=== PATIENT | female | born 1975 | race Caucasian/White ===

== ENCOUNTER 2018-01-29 15:52 | Inpatient (IN) ==
[2018-01-30] MEDS ORDERED: Acetaminophen 325 MG Tablet PO PRN (02:30)
[2018-01-30] MEDS ORDERED: Morphine Inj 4 MG/ML Vial IV.PUSH PRN (02:32)
[2018-01-30] MEDS: Sod Chloride 0.9% Inj 1,000 ML IV.CONT SCH ×3 (03:01→23:47)
--- NOTE | 2018-01-30 12:13 | P.HPIM ---
History of Present Illness Service: [facility] Primary Care Physician: No Primary Care Physician Chief Complaint: Dysuria and Left groin pain History of Present Illness: This is a 42-year-old female with past medical history of opiate addiction on methadone who presented to the ER with severe suprapubic and left flank pain that started the morning of 01/29. Patient also stated that she began to have dysuria at that time, denied fever, chills, N/V, and hematuria. Patient reports that she has had multiple kidney stones since age of 17 none of which required surgery, last one a few months ago. She also adds that she had a UTI and URI 1 wk ago s/p Augmentin. Patient reports that she has been on methadone for the past 20 years, no dose changes. Patient reports that her last dose was on 01/28/2018. Patient denies other illicit drug use. - Diagnosis (1) UTI (urinary tract infection) (2) Opioid dependence (3) Calculus, ureteral Inpatient Certification: I certify that the inpatient services were ordered in accordance with Medicare regulations governing the order. This includes certification that hospital inpatient services are reasonable and necessary and in the case of services not specified as inpatient-only under 42 CFR 419.22(n), that they are appropriately provided as inpatient services in accordance to with the 2-midnight benchmark under 43 CFR 412.3(e) Estimated Total Length of Stay (Days): 2 Plans for Post Hospital Care: Home Review of Systems All other systems reviewed negative except as stated in HPI [facility] - History History Provided By: Patient - Medical History Medical History: Medical History (Last Updated 01/30/18 @ 14:21 by Aster Helms MD) Drug abuse, IV (Acute) Hx of ovarian cyst Kidney calculi - Surgical History Surgical History: Surgical History (Last Updated 01/30/18 @ 14:21 by Aster Helms MD) Hx of hysterectomy (Acute) - Social History I have reviewed the patient's Social History: Yes - Tobacco History Second Hand Smoke Exposure: Yes Tobacco Use In Past 30 Days: Yes Smoking Status: Current every day smoker Tobacco Type: Cigarettes - Alcohol History How Often Do You Have a Drink Containing Alcohol: Never - Substance Use History Substance History: Past History (Currently on methadone at the [facility] methadone clinic, dose verified by RN today, on 170 mg daily) - Immunization History Hx Influenza Vaccine This Season: No Medications and Allergies Active Medications: Active Medications Acetaminophen (Tylenol) 650 mg PO Q4H PRN PRN Reason: Temp > 100.4 Sodium Chloride (Ns Inj) 1,000 mls @ 150 mls/hr IV.CONT .Q6H40M DARBY Last Admin: 01/30/18 03:01 Dose: 100 mls/hr Ceftriaxone Sodium 1,000 mg/ (Sodium Chloride) 100 mls @ 200 mls/hr IV.SIG Q24H DARBY Morphine Sulfate (Morphine Inj) 2 mg IV.PUSH Q3H PRN PRN Reason: ABDOMINAL PAIN Last Admin: 01/30/18 03:06 Dose: 2 mg Ondansetron HCl (Zofran Inj) 4 mg IV.PUSH Q6H PRN PRN Reason: NAUSEA OR VOMITING Allergies Allergy/AdvReac Type Severity Reaction Status Date / Time No Known Allergies Allergy Verified 01/30/18 02:02 Home Medications Medication Instructions Recorded Confirmed Type methadone 170 mg PO DAILY 01/30/18 01/30/18 History Exam Vital signs: Vital Signs 01/30/18 02:06 01/30/18 03:46 01/30/18 04:00 Temperature 98.0 F 97.6 F Pulse Rate 60 64 Respiratory Rate 18 18 16 Blood Pressure 120/70 128/70 Pulse Oximetry 98 96 01/30/18 08:00 Temperature 97.3 F L Pulse Rate 68 Respiratory Rate 20 Blood Pressure 117/60 Pulse Oximetry 97 Intake & Output 01/29/18 01/30/18 01/30/18 18:59 06:59 18:59 Weight 71.817 kg Other: Date of Last Bowel Movement 01/28/18 Weight On Admission 71.817 kg Narrative: GENERAL: Well-nourished female, in mild distress due to pain, lying in bed SKIN: Warm and dry. HEAD: Normocephalic. EYES: No scleral icterus. No injection or drainage. NECK: Supple, trachea midline. No JVD or lymphadenopathy. CARDIOVASCULAR: Regular rate and rhythm without murmurs, gallops, or rubs. RESPIRATORY: Breath sounds equal bilaterally. No accessory muscle use. GASTROINTESTINAL: Abdomen soft, non-tender, nondistended. Negative rebound, left groin with mild tenderness to palpation. Negative Floyd's punch right and left. MUSCULOSKELETAL: No cyanosis, or edema. BACK: Nontender without obvious deformity. No CVA tenderness. NEURO: AAO x3, no focal deficit Caprini VTE Risk Assessment Caprini VTE Risk Assessment: No/Low Risk (score <= 1) Caprini Risk Assessment Model: Point Value = 1 Point Value = 2 Point Value = 3 Point Value = 5 Age 41-60 Minor surgery BMI > 25 kg/m2 Swollen legs Varicose veins or History of unexplained or recurrent spontaneous Oral contraceptives or hormone replacement Sepsis (< 1 month) Serious lung disease, including pneumonia (< 1 month) Abnormal pulmonary function Acute myocardial infarction Congestive heart failure (< 1 month) History of inflammatory bowel disease Medical patient at bed rest Age 61-74 Arthroscopic surgery Major open surgery (> 45 min) Laparoscopic surgery (> 45 min) Malignancy Confined to bed (> 72 hours) Immobilizing plaster cast Central venous access Age >= 75 History of VTE Family history of VTE Factor V Leiden Prothrombin [id number] Lupus anticoagulant Anticardiolipin antibodies Elevated serum homocysteine Heparin-induced thrombocytopenia Other congenital or acquired thrombophilia Stroke (< 1 month) Elective arthroplasty Hip, pelvis, or leg fracture Acute spinal cord injury (< 1 month) Prophylaxis Regimen: Total Risk Factor Score Risk Level Prophylaxis Regimen 0-1 Low Early ambulation 2 Moderate Order ONE of the following: *Sequential Compression Device (SCD) *Heparin 5000 units SQ BID 3-4 Higher Order ONE of the following medications: *Heparin 5000 units SQ TID *Enoxaparin/Lovenox 40 mg SQ daily (WT < 150 kg, CrCl > 30 mL/min) *Enoxaparin/Lovenox 30 mg SQ daily (WT < 150 kg, CrCl > 10-29 mL/min) *Enoxaparin/Lovenox 30 mg SQ BID (WT < 150 kg, CrCl > 30 mL/min) AND/OR *Sequential Compression Device (SCD) 5 or more Highest Order ONE of the following medications: *Heparin 5000 units SQ TID (Preferred with Epidurals) *Enoxaparin/Lovenox 40 mg SQ daily (WT < 150 kg, CrCl > 30 mL/min) *Enoxaparin/Lovenox 30 mg SQ daily (WT < 150 kg, CrCl > 10-29 mL/min) *Enoxaparin/Lovenox 30 mg SQ BID (WT < 150 kg, CrCl > 30 mL/min) AND *Sequential Compression Device (SCD) Assessment and Plan - Assessment (1) UTI (urinary tract infection) Code(s): N39.0 - Urinary tract infection, site not specified Status: Acute (2) Opioid dependence Code(s): F11.20 - Opioid dependence, uncomplicated Status: Chronic (3) Calculus, ureteral Code(s): N20.1 - Calculus of ureter Status: Acute - Plan This is a 42-year female with PMHX of Opioid Addiction on methadone admitted from the [facility] ER for UTI with CT finding of a 7 x 3 mm distal left ureteral calculus with mild hydronephrosis, urology was consulted to assist with management, HD #1 1. Left Ureteral Calculus with Mild Hydronephrosis and UTI Cont. Ceftriaxone 1g Q 24 hours, started on 01/30 Urine Cx 01/29: Gram neg rods, pending sensitivities in select visit under 01/29 ) NPO at midnight tonight for possible surgery in AM (given reg diet prior to my evaluation) IVF at 150ml/hr Follow-up Urology reccs Blood cultures obtained today Cont. home Methadone 170mg QD for pain mgmt and Zofran PRN Cont. Flomax daily CT ABD PELVIX 01/29: FINDINGS: Lower Lungs: The visualized lower lungs are clear. Liver: The liver has a homogeneous density without space-occupying lesion. There is no dilation of the biliary tree. Spleen: Homogeneous density without enlargement. Pancreas: Unremarkable without mass or calcification. Kidneys: Normal in size and shape. There are 2 tiny nonobstructing right renal calculi. There is mild hydronephrosis on the right. There is a distal left ureteral calculus measuring approximately 7 x 3 mm in greatest diameter. This is located approximately 4 cm above the ureterovesicular junction. There is a cyst in the right kidney. There is slight prominence the proximal left ureter with mild surrounding inflammatory change.. Adrenal Glands: Unremarkable. Aorta: The aorta and proximal iliac vessels are grossly unremarkable without aneurysmal dilation. Bowel/Mesentery: The bowel loops are grossly unremarkable. The cecum and sigmoid colon have a normal configuration. Abdominal Wall: Intact. Retroperitoneum: No evidence of adenopathy in the retrocrural, para-aortic, or deep pelvic regions. Bladder: Contours are smooth. Reproductive Organs: No abnormal masses or calcifications seen. Inguinal: The inguinal region is unremarkable without evidence of adenopathy. Bony Structures: Unremarkable. CONCLUSION: Distal left ureteral calculus with mild hydronephrosis. Small nonobstructing right renal calculi. 2. Opiate Addiction Patient attends the [facility] Methadone dose was verified with the clinic today via telephone by RN Kylie. patient's dose of Methadone 170mg QD, last dose was given on 01/28 at the clinic Will obtain UDS, although our lab does not specifically test for methadone 3. DVT PPX: SCD's 4. Dispo: await Uro reccs, NPO at midnight in case of surgical intervention tomorrow, F/U AM labs Code Status: full Discussed Condition With: patient, RN H&P: Quality - VTE Deep Vein Thrombosis/Pulmonary Embolism Present on Admission: No
[2018-01-30] MEDS: Methadone 10 MG Tablet PO SCH (13:15)
[2018-01-30 13:37] LABS: Amphetamine Screen,Urine Neg (Neg); Barbiturate Screen,Urine Neg (Neg); Cannabinoid Screen,Urine Neg (Neg); Cocaine Screen,Urine Neg (Neg)
[2018-01-30 13:41] LABS: Opiate Screen,Urine Neg (Neg)
--- NOTE | 2018-01-30 16:05 | MB ---
cc: Deven Horann Kaiser DO DATE: 01/30/2018 HISTORY OF PRESENT ILLNESS: This is a 42-year-old female who presented to the emergency room with left-sided flank pain. She had a CT scan, which demonstrated a 7 mm stone in the lower left ureter causing moderate hydronephrosis. She has had kidney stones in the past, but she has made able to pass those all before. PAST MEDICAL HISTORY: Includes IV drug abuse, fibroids, renal calculi. PAST SURGICAL HISTORY: Appendectomy, total abdominal hysterectomy. SOCIAL HISTORY: She does smoke. She denies drinking, but she does have a history of opioid abuse and is currently on methadone. ALLERGIES: NO KNOWN DRUG ALLERGIES. MEDICATIONS: Please refer to the chart. REVIEW OF SYSTEMS: Left-sided flank pain, dysuria. Denies nausea, vomiting, fever or chills, gait disturbance, bleeding disorder, skin lesions, chest pain, shortness of breath. Denies constipation. Denies seizures. Remaining review of systems were reviewed and were negative. PHYSICAL EXAMINATION: VITAL SIGNS: Today, temperature 97.6, heart rate 79, respiratory rate 18, 115/70 is her blood pressure. GENERAL: Reveals a well-developed, well-nourished, 42-year-old female in no acute distress. HEENT: Normocephalic, atraumatic. Pupils equal, round, regular and reactive to light. Extraocular movements intact. NECK: Supple. HEART: Regular rate and rhythm. LUNGS: Clear. ABDOMEN: Soft, nontender, nondistended. There is mild left CVA tenderness present. EXTREMITIES: Show no cyanosis, clubbing, or edema. GENITOURINARY: Normal female external genitalia. NEUROLOGIC: Cranial nerves 2-12 are intact. LABORATORY DATA: White count 10.4, hemoglobin 14.5, hematocrit 42.0, platelet count of 335. Sodium 143, potassium 4.3, chloride 108, CO2 29.6, BUN 12, creatinine 0.63, glucose 94. Urinalysis: Moderate leukocyte esterase, nitrites positive, urine culture is pending as well as blood culture. ASSESSMENT: A 42-year-old female with a 7 mm lower left ureteral stone causing obstruction. PLAN: Will be for cystoscopy, possible ureteroscopy, laser lithotripsy, stone extraction in the a.m. with stent insertion. Risks and benefits discussed. The patient willing to proceed. DO COLT Cerda/pamela , 03:18 PM , 03:25 PM
[2018-01-31] MEDS ORDERED: Chlorhexidine Gluconate 2% 1 Pack (2 Cloths) TOPICAL ONE (01:10)
[2018-01-31] MEDS ORDERED: Metoprolol Tartrate 25 MG Tablet PO ONE (01:10)
[2018-01-31] MEDS ORDERED: Sodium Chlor 0.9% Inj 500 ML IV.SIG SCH (02:00)
[2018-01-31 06:26] LABS: Baso % (Auto) 0.6 % (0.0-2.0); Eos # (Auto) 0.3 th/mm3 (0.0-0.4); Eos % (Auto) 3.8 % (0.0-4.0); Hematocrit 35.2 % (35.0-46.0); Hemoglobin 12.2 gm/dL (11.6-15.3); Lymph # (Auto) 2.1 th/mm3 (1.0-4.8); Lymph % (Auto) 29.5 % (9.0-44.0); Mean Corpuscular HGB Conc 34.6 % (32.0-36.0); Mean Corpuscular Hemoglobin 31.4 pg (27.0-34.0); Mean Corpuscular Volume 90.8 fL (80.0-100.0); Mean Platelet Volume 7.1 fL (7.0-11.0); Mono # (Auto) 0.4 th/mm3 (0.0-0.9); Mono % (Auto) 5.4 % (0.0-8.0); Neut # (Auto) 4.2 th/mm3 (1.8-7.7); Neut % (Auto) 60.7 % (16.0-70.0); Platelet Count 228 th/mm3 (150-450); Red Blood Count 3.88 mil/mm3 (4.00-5.30); Red Cell Distribution Width 13.1 % (11.6-17.2)
[2018-01-31 08:41] LABS: Anion Gap 5 meq/L (5-15); Blood Urea Nitrogen 9 mg/dL (7-18); Calcium 7.6 mg/dL (8.5-10.1); Carbon Dioxide 25.7 meq/L (21.0-32.0); Chloride 111 meq/L (98-107); Glomerular Filtration Rate Greater Than 89 mL/min (>89); Glucose,Random 82 mg/dL (74-106); Potassium 3.9 meq/L (3.5-5.1); Sodium 142 meq/L (136-145)
[2018-01-31] MEDS ORDERED: HYDROmorphone PF Inj 2 MG/ML Vial ONE (08:47)
[2018-01-31] MEDS ORDERED: Lidocaine PF 1% Inj 5 ML Syringe OTHER ONE (08:59)
[2018-01-31] MEDS ORDERED: Belladonna Alkaloid/Opium 60 MG Supp RECTAL ONE (09:03)
--- NOTE | 2018-01-31 09:49 | P.OP ---
- Preoperative Diagnosis (1) Left ureteral calculus (2) Hydronephrosis due to obstruction of ureter - Postoperative Diagnosis (1) Hydronephrosis due to obstruction of ureter (2) Left ureteral calculus Date of procedure: 01/31/18 Procedure: Cystoscopy, left ureteroscopy, stone extraction, left retrograde pyelogram. Anesthesia: GETA Surgeon: Navdeep Horan DO Estimated blood loss (mL): 0 Operation and Findings: 42-year-old female presented with a 7 mm decision made to bring the patient to the operating room to undergo cystoscopy with left ureteroscopy possible laser lithotripsy and stone extraction with possible stent insertion. Risk and benefits were discussed preoperative patient was willing to proceed. Patient was brought to the operating room and identified by myself as Kalpana Sexton. She was placed in the dorsolithotomy position, prepped and draped in sterile fashion, received preprocedure antibiotics and general endotracheal tube anesthesia was administered. 22 Italian cystoscope was inserted the bladder yates cystoscopy did not reveal abnormalities. The long rigid Cordero ureteroscope was then passed into the bladder into the left ureter and up to the area of the stone. Using the nitinol basket the stone was grasped and was removed without difficulty. A retrograde pyelogram was performed with contrast injected into the ureteroscope and up into the kidney through the ureter. No more filling defects were identified. The stone was then sent for analysis. She was awoken and transferred to recovery room in stable condition. She tolerated the procedure well.
[2018-01-31] MEDS ORDERED: *Meperidine Inj 25 MG/ML Vial PERIprocedural Use ONLY ONE (10:08)
[2018-01-31] MEDS ORDERED: fentaNYL Citrate Inj 100 MCG/2 ML Ampul ONE (10:11)
[2018-01-31] MEDS ORDERED: *morphine SULFATE 4 MG/ML PERIprocedure ONLY ONE ×2 (10:16→10:25)
[2018-01-31] MEDS ORDERED: Morphine Sulfate Inj 2 MG/ML Vial IV.PUSH PRN (10:32)
[2018-01-31 13:22] VITALS: RESP 16
--- NOTE | 2018-01-31 14:53 | P.PNIM ---
Subjective Interval history: Patient reports no further pain since her surgery. Has urinated after surgery without any difficulty. Would like to go home. Physical Exam Vital signs: Vital Signs 01/30/18 16:00 01/30/18 19:42 01/31/18 00:00 Temperature 97.9 F 98.4 F 98.4 F Pulse Rate 66 75 68 Respiratory Rate 21 17 18 Blood Pressure 137/64 102/60 109/64 Pulse Oximetry 93 L 96 96 01/31/18 04:00 01/31/18 08:00 01/31/18 10:00 Temperature 98.6 F 98.3 F 98.2 F Pulse Rate 66 63 106 H Respiratory Rate 17 16 20 Blood Pressure 103/62 125/63 137/75 Pulse Oximetry 97 98 97 01/31/18 10:30 01/31/18 12:00 Temperature 98.0 F 98.4 F Pulse Rate 81 80 Respiratory Rate 20 16 Blood Pressure 126/64 133/74 Pulse Oximetry 97 96 Intake & Output 01/30/18 01/31/18 01/31/18 18:59 06:59 18:59 Intake Total 1820 / 1820 1000 / 1000 500 / 500 Output Total 5 / 5 Balance 1820 / 1820 1000 / 1000 495 / 495 Weight 70 kg Intake: IV 1100 / 1100 1000 / 1000 NS Inj 1,000 ML @ 150 mls/hr IV 1000 / 1000 1000 / 1000 .CONT .Q6H40M [facility] Rx#:[id number] Rocephin Inj 1,000 MG In NS Inj 100 / 100 100 ML @ 200 mls/hr IV.SIG Q24H [facility] Rx#:[id number] Oral 720 / 720 Anesthesia Amount 500 / 500 Output: Estimated Blood Loss 5 / 5 Other: # Voids 3 Date of Last Bowel Movement 01/28/18 # Bowel Movements 0 Narrative: GENERAL: This is a well-nourished, well-developed patient, in no apparent distress. CARDIOVASCULAR: Regular rate and rhythm without murmurs, gallops, or rubs. RESPIRATORY: Clear to auscultation. Breath sounds equal bilaterally. No wheezes , rales, or rhonchi. GASTROINTESTINAL: Abdomen soft, non-tender, nondistended. Normal active bowel sounds MUSCULOSKELETAL: Extremities without clubbing, cyanosis, or edema. NEURO: Alert & Oriented x4 to person, place, time, situation. Moves all ext x4 Results - Labs CBC & Chem 7: 01/31/18 05:21 01/31/18 07:37 Laboratory Results - last 24 hr 01/31/18 01/31/18 05:21 07:37 WBC 7.0 RBC 3.88 L Hgb 12.2 D Hct 35.2 MCV 90.8 MCH 31.4 MCHC 34.6 RDW 13.1 Plt Count 228 D MPV 7.1 Neut % (Auto) 60.7 Lymph % (Auto) 29.5 [place] % (Auto) 5.4 Eos % (Auto) 3.8 Baso % (Auto) 0.6 Neut # (Auto) 4.2 Lymph # (Auto) 2.1 [place] # (Auto) 0.4 Eos # (Auto) 0.3 Baso # (Auto) 0.0 WBC Differential . Differential Comment Auto diff final Sodium 142 Potassium 3.9 Chloride 111 H Carbon Dioxide 25.7 Anion Gap 5 BUN 9 Creatinine 0.61 Estimated GFR Greater than 89 Random Glucose 82 Calcium 7.6 L C-Reactive Protein Less than 0.29 Microbiology 01/30/18 13:05 Random Urine Urine Culture - Final 10-50,000 cfu/mL mixed gram positive griselda (probable contaminants) 01/30/18 13:59 Blood - Peripheral Aerobic Blood Culture - Preliminary No growth in 1 day 01/30/18 13:59 Blood - Peripheral Anaerobic Blood Culture - Preliminary No growth in 1 day 01/30/18 13:59 Blood - Peripheral Aerobic Blood Culture - Preliminary No growth in 1 day 01/30/18 13:59 Blood - Peripheral Anaerobic Blood Culture - Preliminary No growth in 1 day Assessment and Plan - Assessment (1) UTI (urinary tract infection) Code(s): N39.0 - Urinary tract infection, site not specified Status: Acute (2) Opioid dependence Code(s): F11.20 - Opioid dependence, uncomplicated Status: Chronic (3) Calculus, ureteral Code(s): N20.1 - Calculus of ureter Status: Inactive - Plan This is a 42-year female with PMHX of Opioid Addiction on methadone admitted from the [facility] ER for UTI with CT finding of a 7 x 3 mm distal left ureteral calculus with mild hydronephrosis, urology was consulted to assist with management 1. Left Ureteral Calculus with Hydronephrosis status post operative Cystoscopy, left ureteroscopy, stone extraction, left retrograde pyelogram with Dr. Horan urology She has done well postoperatively and has been cleared by urology for discharge to home. Urine culture showed mixed griselda less than 10,000 therefore no urinary tract infection. 2. Opiate Addiction Patient attends the [facility] Methadone dose was verified with the clinic today via telephone by RN Kylie. patient's dose of Methadone 170mg QD, last dose was given on 01/28 at the clinic Instructed patient to follow-up with clinic. Discharge patient to home Condition on discharge: Improved Regular Diet as tolerated Ad Glendy activity No new Rx written: Follow-up with primary care physician Follow-up with Dr. oHran, urology as needed.
[2018-01-31] MEDS: Methadone 10 MG Tablet PO SCH (14:55)
[2018-01-31 16:41] VITALS: BP 128/74; PULSE 86; TEMP 98.3; O2SAT 92
== END 2018-01-31 19:56 | disposition home or self-care (01) ==
LOC: NEDDLT 01-30 01:43 → N06 01-30 01:53
PROVIDERS: ADMIT Family Medicine; ATTEND Family Medicine